=== PATIENT | female | born 1940 | race Caucasian/White ===

== ENCOUNTER 2025-02-21 04:24 | Inpatient (IN) | payer MEDICARE, BC ==
[2025-02-21] MEDS ORDERED: Senokot S 8.6-50 MG TAB PO PRN (05:04)
[2025-02-21] MEDS ORDERED: Ondansetron PF 4 MG/2 ML Vial IVP PRN (05:04)
[2025-02-21] MEDS ORDERED: Calcium Carbonate 500 MG ChewTAB PO PRN (05:04)
[2025-02-21 05:41] LABS: #Basophils Less than 0.03 10x3/uL (0.0-0.2); #Eosinophils Less than 0.03 10x3/uL (0.0-0.7); #Monocytes 0.59 10x3/uL (0.11-0.59); #Neutrophils 14.01 10x3/uL (1.40-6.50); %Basophils 0.1 % (0.0-1.0); %Eosinophils 0.0 % (0.0-10.0); %Lymphocytes 5.3 % (21.0-51.0); %Monocytes 3.8 % (0.0-10.0); %Neutrophils 90.5 % (42.0-75.0); Hematocrit 31.0 % (36.0-47.0); Hemoglobin 9.9 g/dL (12.0-16.0); Mean Corpuscular Hemoglobin 29.6 pg (27.0-31.0); Mean Corpuscular Volume 92.5 fL (78.0-98.0); Platelet Count 129 10x3/uL (130-400); Red Blood Cell (RBC) Count 3.35 mill/uL (4.20-5.40); White Blood Cell (WBC) Count 15.49 10x3/uL (4.8-10.8)
[2025-02-21 05:56] LABS: ALT (SGPT) 13 U/L (Less than 34); AST (SGOT) 28 U/L (11-34); Albumin 3.0 g/dL (3.1-4.5); Alkaline Phosphatase 90 U/L (40-110); Anion Gap 17 mmol/L (10-20); BUN (Urea Nitrogen) 18 mg/dL (9.8-20.1); Bilirubin, Total 0.5 mg/dL (0.3-1.2); Calc. Creatinine Clearance 0 mL/min (70-130); Calcium 9.1 mg/dL (7.8-10.44); Carbon Dioxide 17 mmol/L (23-31); Chloride 106 mmol/L (98-107); Globulin 3.9 g/dL (2.4-3.5); Glucose 129 mg/dL (83-110); Magnesium 1.5 mg/dL (1.6-2.6); Potassium 3.7 mmol/L (3.5-5.1); Sodium 136 mmol/L (136-145)
[2025-02-21 06:25] VITALS: BMI 24.6
[2025-02-21] MEDS: Ketorolac Tromethamine 30 MG (1 mL) VIAL IVP SCH (09:05)
[2025-02-21] MEDS: Enoxaparin 30 MG (0.3 mL) SYRINGE SC SCH (09:06)
[2025-02-21] MEDS: Azithromycin 500 MG in Sodium Chloride 0.9% 250 ML 250 ML IVPB SCH (09:06)
[2025-02-21] MEDS: Magnesium 2 GM/50 ML(in water) 2 GM in Premix 1 BAG IVPB SCH (09:06)
[2025-02-21 16:01] LABS: Bacteria/HPF 1+ HPF (None Seen); Glucose, Urine (Dipstick) Normal (Negative); Leukocyte 500 Leu/uL (Negative); Protein, Urine (Dipstick) 50 mg/dL (Neg-Trace); Specific Gravity, Urine 1.013 (1.002-1.036); WBC/HPF Greater than 50 HPF (0-3)
[2025-02-21] MEDS: Ketorolac Tromethamine 30 MG (1 mL) VIAL IVP PRN (17:28)
[2025-02-21] MEDS: Metoclopramide HCl 10 MG (2 mL) VIAL IVP PRN (17:47)
[2025-02-21] MEDS: Carvedilol 6.25 MG TAB PO SCH (21:22)
[2025-02-22] MEDS: Magnesium 2 GM/50 ML(in water) 2 GM in Premix 1 BAG IVPB SCH (00:38)
[2025-02-22] MEDS: Mometasone 100 MCG HFA INHALER (RT USE) INH SCH (08:03)
[2025-02-22 11:02] LABS: #Basophils Less than 0.03 10x3/uL (0.0-0.2); #Eosinophils Less than 0.03 10x3/uL (0.0-0.7); #Monocytes 0.06 10x3/uL (0.11-0.59); #Neutrophils 5.68 10x3/uL (1.40-6.50); %Basophils 0.0 % (0.0-1.0); %Eosinophils 0.0 % (0.0-10.0); %Lymphocytes 4.6 % (21.0-51.0); %Monocytes 1.0 % (0.0-10.0); %Neutrophils 94.1 % (42.0-75.0); Hematocrit 27.3 % (36.0-47.0); Hemoglobin 8.5 g/dL (12.0-16.0); Mean Corpuscular Hemoglobin 29.9 pg (27.0-31.0); Mean Corpuscular Volume 96.1 fL (78.0-98.0); Platelet Count 111 10x3/uL (130-400); Red Blood Cell (RBC) Count 2.84 mill/uL (4.20-5.40); White Blood Cell (WBC) Count 6.04 10x3/uL (4.8-10.8)
[2025-02-22 11:09] LABS: ALT (SGPT) 22 U/L (Less than 34); AST (SGOT) 42 U/L (11-34); Albumin 2.7 g/dL (3.1-4.5); Alkaline Phosphatase 82 U/L (40-110); Anion Gap 14 mmol/L (10-20); BUN (Urea Nitrogen) 25 mg/dL (9.8-20.1); Bilirubin, Total 0.2 mg/dL (0.3-1.2); Calc. Creatinine Clearance 28 mL/min (70-130); Calcium 8.6 mg/dL (7.8-10.44); Carbon Dioxide 18 mmol/L (23-31); Chloride 113 mmol/L (98-107); Globulin 3.6 g/dL (2.4-3.5); Glucose 153 mg/dL (83-110); Potassium 4.3 mmol/L (3.5-5.1); Sodium 141 mmol/L (136-145)
[2025-02-22] MEDS ORDERED: Rocuronium Bromide 10 MG/ML (10ML VIAL) ONE (11:15)
[2025-02-22] MEDS ORDERED: EPINEPHrine 1 MG/10 ML Abboject SYRINGE ONE (11:15)
[2025-02-22] MEDS ORDERED: Etomidate 40 MG (20 mL) VIAL ONE (11:15)
[2025-02-22 11:29] LABS: Burr Cells SLIGHT = 2-5 cells HPF (0-1); Microcytosis SLIGHT = 6-15 cells HPF (0-5); Platelet Adequacy Comment Platelets Decreased; Polychromasia SLIGHT = 2-3 cells HPF (0-2); Schistocytes SLIGHT = 2-5 cells HPF (0-1)
[2025-02-22 12:17] LABS: Base Excess (BEa) -11.6 mEq/L (-2.0 to +3.0); CO2 Tension 34.9 mmHg (35.0-45.0); Calcium, Ionized (arterial) 1.21 mmol/L (1.12-1.30); Hematocrit-ABG 33 % (36.0-47.0); Hemoglobin (Hb) 11.1 g/dL (12.0-16.0); O2 Tension (PaO2), arterial 65.4 mmHg (> 60.0); Potassium - ABG Lab 3.91 mmol/L (3.70-5.30); pH, Arterial 7.244 (7.35-7.45)
[2025-02-22 12:19] LABS: ALV-art Gradient 176.175 mmHg (0-20); Actual Bicarbonate (HCO3a) 14.8 mEq/L (22-28); Puncture Site Right Radial artery
[2025-02-22] MEDS ORDERED: Electrolyte Replacement Protocol 1 EACH FS PRN (12:21)
[2025-02-22] MEDS ORDERED: Propofol BOLUS 1,000 MG/100 ML VIAL IV PRN (12:45)
[2025-02-22] MEDS ORDERED: Fentanyl BOLUS 100 ML IVPB PRN (12:45)
[2025-02-22] MEDS: Ventilator Sedation Protocol 1 EACH FS ONE (13:35)
[2025-02-22] MEDS: Pantoprazole 40 MG VIAL IVP SCH ×2 (14:23→14:32)
[2025-02-22 14:31] LABS: Troponin I 0.044 ng/mL (< 0.028)
[2025-02-22] MEDS: Furosemide 20 MG (2 mL) VIAL SLOW IVP SCH (17:17)
[2025-02-22] MEDS: Mupirocin 1 GM TUBE NASAL DECOLONIZATION NASAL SCH (20:20)
[2025-02-23 06:12] LABS: #Basophils Less than 0.03 10x3/uL (0.0-0.2); #Eosinophils Less than 0.03 10x3/uL (0.0-0.7); #Monocytes 0.53 10x3/uL (0.11-0.59); #Neutrophils 6.69 10x3/uL (1.40-6.50); %Basophils 0.1 % (0.0-1.0); %Eosinophils 0.1 % (0.0-10.0); %Lymphocytes 14.2 % (21.0-51.0); %Monocytes 6.3 % (0.0-10.0); %Neutrophils 78.9 % (42.0-75.0); Hematocrit 22.8 % (36.0-47.0); Hemoglobin 7.4 g/dL (12.0-16.0); Mean Corpuscular Hemoglobin 29.8 pg (27.0-31.0); Mean Corpuscular Volume 91.9 fL (78.0-98.0); Platelet Count 111 10x3/uL (130-400); Red Blood Cell (RBC) Count 2.48 mill/uL (4.20-5.40); White Blood Cell (WBC) Count 8.47 10x3/uL (4.8-10.8)
[2025-02-23 06:34] LABS: ALT (SGPT) 58 U/L (Less than 34); AST (SGOT) 82 U/L (11-34); Albumin 2.1 g/dL (3.1-4.5); Alkaline Phosphatase 78 U/L (40-110); Anion Gap 13 mmol/L (10-20); BUN (Urea Nitrogen) 38 mg/dL (9.8-20.1); Bilirubin, Total 0.4 mg/dL (0.3-1.2); Calc. Creatinine Clearance 23 mL/min (70-130); Calcium 8.2 mg/dL (7.8-10.44); Carbon Dioxide 16 mmol/L (23-31); Chloride 115 mmol/L (98-107); Globulin 3.3 g/dL (2.4-3.5); Glucose 105 mg/dL (83-110); Magnesium 2.4 mg/dL (1.6-2.6); Potassium 3.4 mmol/L (3.5-5.1); Sodium 141 mmol/L (136-145)
[2025-02-23 07:21] LABS: Base Excess (BEa) -9.6 mEq/L (-2.0 to +3.0); CO2 Tension 26.1 mmHg (35.0-45.0); Calcium, Ionized (arterial) 1.24 mmol/L (1.12-1.30); Hematocrit-ABG 27 % (36.0-47.0); Hemoglobin (Hb) 9.3 g/dL (12.0-16.0); O2 Tension (PaO2), arterial 96.3 mmHg (> 60.0); Potassium - ABG Lab 3.74 mmol/L (3.70-5.30); pH, Arterial 7.364 (7.35-7.45)
[2025-02-23 07:23] LABS: Actual Bicarbonate (HCO3a) 14.5 mEq/L (22-28); Puncture Site Right Radial artery
[2025-02-23 07:24] LABS: ALV-art Gradient 156.275 mmHg (0-20)
[2025-02-23] MEDS: Magnesium 2 GM/50 ML(in water) 2 GM in Premix 1 BAG IVPB SCH (08:32)
[2025-02-23] MEDS: Potassium Chloride 20 MEQ in Premix 1 BAG IVPB SCH (08:33)
[2025-02-23 08:43] LABS: Hematocrit 24.1 % (36.0-47.0); Hemoglobin 7.7 g/dL (12.0-16.0); Mean Corpuscular Hemoglobin 29.5 pg (27.0-31.0); Mean Corpuscular Volume 92.3 fL (78.0-98.0); Platelet Count 132 10x3/uL (130-400); Red Blood Cell (RBC) Count 2.61 mill/uL (4.20-5.40); White Blood Cell (WBC) Count 9.97 10x3/uL (4.8-10.8)
[2025-02-23] MEDS: Sodium Bicarbonate 140 MEQ in Dextrose 5% in Water 1,000 ML IV SCH (10:28)
[2025-02-24] MEDS: Albumin 25% 25 GM (100 mL) BOT IVPB SCH (02:41)
[2025-02-24 02:46] LABS: #Basophils Less than 0.03 10x3/uL (0.0-0.2); #Eosinophils 0.09 10x3/uL (0.0-0.7); #Monocytes 0.71 10x3/uL (0.11-0.59); #Neutrophils 7.09 10x3/uL (1.40-6.50); %Basophils 0.2 % (0.0-1.0); %Eosinophils 0.9 % (0.0-10.0); %Lymphocytes 16.7 % (21.0-51.0); %Monocytes 7.4 % (0.0-10.0); %Neutrophils 74.4 % (42.0-75.0); Hematocrit 27.2 % (36.0-47.0); Hemoglobin 9.1 g/dL (12.0-16.0); Mean Corpuscular Hemoglobin 30.0 pg (27.0-31.0); Mean Corpuscular Volume 89.8 fL (78.0-98.0); Platelet Count 137 10x3/uL (130-400); Red Blood Cell (RBC) Count 3.03 mill/uL (4.20-5.40); White Blood Cell (WBC) Count 9.54 10x3/uL (4.8-10.8)
[2025-02-24 03:19] LABS: ALT (SGPT) 53 U/L (Less than 34); AST (SGOT) 66 U/L (11-34); Albumin 2.2 g/dL (3.1-4.5); Alkaline Phosphatase 82 U/L (40-110); Anion Gap 13 mmol/L (10-20); BUN (Urea Nitrogen) 45 mg/dL (9.8-20.1); Bilirubin, Total 0.6 mg/dL (0.3-1.2); Calc. Creatinine Clearance 22 mL/min (70-130); Calcium 8.3 mg/dL (7.8-10.44); Carbon Dioxide 20 mmol/L (23-31); Chloride 112 mmol/L (98-107); Globulin 3.4 g/dL (2.4-3.5); Glucose 121 mg/dL (83-110); Magnesium 2.6 mg/dL (1.6-2.6); Potassium 3.4 mmol/L (3.5-5.1); Sodium 142 mmol/L (136-145)
[2025-02-24 06:21] LABS: Actual Bicarbonate (HCO3a) 21.4 mEq/L (22-28); Base Excess (BEa) -0.2 mEq/L (-2.0 to +3.0); Calcium, Ionized (arterial) 1.18 mmol/L (1.12-1.30); Hematocrit-ABG 28 % (36.0-47.0); Hemoglobin (Hb) 9.4 g/dL (12.0-16.0); O2 Tension (PaO2), arterial 101.3 mmHg (> 60.0); Potassium - ABG Lab 3.15 mmol/L (3.70-5.30); pH, Arterial 7.552 (7.35-7.45)
[2025-02-24 06:24] LABS: CO2 Tension 24.9 mmHg (35.0-45.0); Puncture Site Right Radial artery
[2025-02-24 06:25] LABS: ALV-art Gradient 152.775 mmHg (0-20)
[2025-02-24] MEDS: Furosemide 40 MG (4 mL) VIAL SLOW IVP SCH (08:14)
[2025-02-24] MEDS: Potassium Chloride 20 MEQ in Premix 1 BAG IVPB SCH (08:15)
[2025-02-24] MEDS: Acetaminophen 325 MG TAB PO PRN (14:59)
[2025-02-24] MEDS: hydrALAZINE 20 MG/ML VIAL SLOW IVP PRN (23:47)
[2025-02-25 01:11] LABS: Troponin I 0.035 ng/mL (< 0.028)
[2025-02-25 04:16] LABS: #Basophils 0.04 10x3/uL (0.0-0.2); #Eosinophils 0.21 10x3/uL (0.0-0.7); #Monocytes 0.60 10x3/uL (0.11-0.59); #Neutrophils 7.01 10x3/uL (1.40-6.50); %Basophils 0.4 % (0.0-1.0); %Eosinophils 2.3 % (0.0-10.0); %Lymphocytes 13.4 % (21.0-51.0); %Monocytes 6.6 % (0.0-10.0); %Neutrophils 76.9 % (42.0-75.0); Hematocrit 26.9 % (36.0-47.0); Hemoglobin 8.6 g/dL (12.0-16.0); Mean Corpuscular Hemoglobin 29.8 pg (27.0-31.0); Mean Corpuscular Volume 93.1 fL (78.0-98.0); Platelet Count 145 10x3/uL (130-400); Red Blood Cell (RBC) Count 2.89 mill/uL (4.20-5.40); White Blood Cell (WBC) Count 9.12 10x3/uL (4.8-10.8)
[2025-02-25 04:40] LABS: Anion Gap 13 mmol/L (10-20); BUN (Urea Nitrogen) 40 mg/dL (9.8-20.1); Calc. Creatinine Clearance 23 mL/min (70-130); Calcium 8.8 mg/dL (7.8-10.44); Carbon Dioxide 23 mmol/L (23-31); Chloride 111 mmol/L (98-107); Glucose 85 mg/dL (83-110); Potassium 3.2 mmol/L (3.5-5.1); Sodium 144 mmol/L (136-145)
[2025-02-25] MEDS: Potassium Chloride 20 MEQ in Premix 1 BAG IVPB SCH (06:29)
[2025-02-25] MEDS: Isosorbide Mononitrate 60 MG ER.TAB PO SCH (08:49)
[2025-02-25] MEDS: Aspirin 81 mg Enteric Coated Tablet PO SCH (09:17)
[2025-02-25] MEDS: Benzonatate 100 MG CAP PO PRN (16:03)
[2025-02-26] MEDS: Albuterol 200 PUFF (6.7GM INHALER) INH PRN (02:11)
[2025-02-26 04:00] LABS: #Basophils 0.03 10x3/uL (0.0-0.2); #Eosinophils 0.20 10x3/uL (0.0-0.7); #Monocytes 0.80 10x3/uL (0.11-0.59); #Neutrophils 8.98 10x3/uL (1.40-6.50); %Basophils 0.3 % (0.0-1.0); %Eosinophils 1.8 % (0.0-10.0); %Lymphocytes 9.9 % (21.0-51.0); %Monocytes 7.2 % (0.0-10.0); %Neutrophils 80.3 % (42.0-75.0); Hematocrit 30.5 % (36.0-47.0); Hemoglobin 9.5 g/dL (12.0-16.0); Mean Corpuscular Hemoglobin 29.4 pg (27.0-31.0); Mean Corpuscular Volume 94.4 fL (78.0-98.0); Platelet Count 149 10x3/uL (130-400); Red Blood Cell (RBC) Count 3.23 mill/uL (4.20-5.40); White Blood Cell (WBC) Count 11.18 10x3/uL (4.8-10.8)
[2025-02-26 04:17] LABS: Anion Gap 17 mmol/L (10-20); BUN (Urea Nitrogen) 36 mg/dL (9.8-20.1); Calc. Creatinine Clearance 27 mL/min (70-130); Calcium 9.3 mg/dL (7.8-10.44); Carbon Dioxide 20 mmol/L (23-31); Chloride 112 mmol/L (98-107); Glucose 96 mg/dL (83-110); Potassium 3.5 mmol/L (3.5-5.1); Sodium 145 mmol/L (136-145)
[2025-02-26] MEDS: Potassium Bicarbonate/Cit Ac 20 MEQ TAB PER TUBE SCH (09:57)
[2025-02-26] MEDS: NIFEdipine XL 60 MG ER.TAB PO SCH (09:57)
[2025-02-26] MEDS: Lisinopril 10 MG TAB PO SCH (09:58)
[2025-02-26] MEDS: Pantoprazole 40 MG DR.TAB PO SCH (09:58)
[2025-02-26] MEDS: ALPRAZolam 0.5 MG TAB PO PRN (19:54)
[2025-02-27] MEDS ORDERED: DISCONTINUE PREVIOUS NARCOTIC PAIN MEDICATIONS AND BENZODIAZEPINES FS SCH (06:15)
[2025-02-27] MEDS ORDERED: Fentanyl BOLUS 100 ML IVPB PRN (06:15)
[2025-02-27] MEDS ORDERED: Ventilator Sedation Protocol 1 EACH FS SCH ×2 (06:15)
[2025-02-27 06:40] LABS: ALT (SGPT) 49 U/L (Less than 34); AST (SGOT) 56 U/L (11-34); Albumin 3.0 g/dL (3.1-4.5); Alkaline Phosphatase 111 U/L (40-110); Anion Gap 15 mmol/L (10-20); BUN (Urea Nitrogen) 39 mg/dL (9.8-20.1); Bilirubin, Total 0.7 mg/dL (0.3-1.2); Calc. Creatinine Clearance 28 mL/min (70-130); Calcium 9.4 mg/dL (7.8-10.44); Carbon Dioxide 23 mmol/L (23-31); Chloride 111 mmol/L (98-107); Globulin 4.0 g/dL (2.4-3.5); Glucose 123 mg/dL (83-110); Magnesium 1.8 mg/dL (1.6-2.6); Potassium 4.3 mmol/L (3.5-5.1); Sodium 145 mmol/L (136-145)
[2025-02-27] MEDS: Propofol BOLUS 1,000 MG/100 ML VIAL IV PRN (07:10)
[2025-02-27 07:31] LABS: Actual Bicarbonate (HCO3a) 21.1 mEq/L (22-28); Base Excess (BEa) -4.4 mEq/L (-2.0 to +3.0); CO2 Tension 40.6 mmHg (35.0-45.0); Calcium, Ionized (arterial) 1.25 mmol/L (1.12-1.30); Hematocrit-ABG 28 % (36.0-47.0); Hemoglobin (Hb) 9.5 g/dL (12.0-16.0); O2 Tension (PaO2), arterial 357.0 mmHg (> 60.0); Potassium - ABG Lab 4.12 mmol/L (3.70-5.30); pH, Arterial 7.334 (7.35-7.45)
[2025-02-27 07:32] LABS: Puncture Site Right Radial artery
[2025-02-27 07:33] LABS: ALV-art Gradient 305.250 mmHg (0-20)
[2025-02-27 07:36] LABS: #Basophils 0.03 10x3/uL (0.0-0.2); #Eosinophils 0.25 10x3/uL (0.0-0.7); #Monocytes 0.65 10x3/uL (0.11-0.59); #Neutrophils 9.10 10x3/uL (1.40-6.50); %Basophils 0.3 % (0.0-1.0); %Eosinophils 2.2 % (0.0-10.0); %Lymphocytes 12.0 % (21.0-51.0); %Monocytes 5.7 % (0.0-10.0); %Neutrophils 79.3 % (42.0-75.0); Hematocrit 30.9 % (36.0-47.0); Hemoglobin 9.6 g/dL (12.0-16.0); Mean Corpuscular Hemoglobin 29.8 pg (27.0-31.0); Mean Corpuscular Volume 96.0 fL (78.0-98.0); Platelet Count 196 10x3/uL (130-400); Red Blood Cell (RBC) Count 3.22 mill/uL (4.20-5.40); White Blood Cell (WBC) Count 11.47 10x3/uL (4.8-10.8)
[2025-02-27] MEDS: Magnesium 2 GM/50 ML(in water) 2 GM in Premix 1 BAG IVPB SCH (09:34)
[2025-02-27] MEDS: Furosemide 20 MG (2 mL) VIAL SLOW IVP SCH (14:50)
[2025-02-27] MEDS: DC Sedation Protocol FS ONE (21:11)
[2025-02-28] MEDS ORDERED: Scopolamine 1 mg/72 hour Patch TD PRN (10:41)
[2025-02-28 11:14] VITALS: BP 198/70; TEMP 97.9
[2025-02-28 14:41] VITALS: BMI 25.4
== END 2025-02-28 15:44 | disposition hospice, inpatient (51) | DRG 871 ==
LOC: T4-A 04:45 → OBS 06:20 → CCU 02-22 11:59 → PCU 02-26 00:25 → CCU 02-27 05:58 → T4-B 02-28 11:05
PROVIDERS: ADMIT Internal Medicine; ATTEND Student in an Organized Health Care Education/Training Program
PROC: 3E03329 Introduction of Other Anti-infective into Peripheral Vein, Percutaneous Approach (ICD-10-PCS; principal; 2025-02-21)
PROC: 30233J1 Transfusion of Nonautologous Serum Albumin into Peripheral Vein, Percutaneous Approach (ICD-10-PCS; 2025-02-21)
PROC: 0BH17EZ Insertion of Endotracheal Airway into Trachea, Via Natural or Artificial Opening (ICD-10-PCS; 2025-02-21)
DX: A41.51 Sepsis due to Escherichia coli [E. coli] (principal); G93.41 Metabolic encephalopathy; I46.9 Cardiac arrest, cause unspecified; J15.9 Unspecified bacterial pneumonia; J96.01 Acute respiratory failure with hypoxia; I50.33 Acute on chronic diastolic (congestive) heart failure; N39.0 Urinary tract infection, site not specified; N17.9 Acute kidney failure, unspecified; E87.20 Acidosis, unspecified; I13.0 Hypertensive heart and chronic kidney disease with heart failure and stage 1 through stage 4 chronic kidney disease, or unspecified chronic kidney disease; Z66 Do not resuscitate; E78.5 Hyperlipidemia, unspecified; F39 Unspecified mood [affective] disorder; J44.9 Chronic obstructive pulmonary disease, unspecified; I25.10 Atherosclerotic heart disease of native coronary artery without angina pectoris; I34.0 Nonrheumatic mitral (valve) insufficiency; I44.7 Left bundle-branch block, unspecified; D63.1 Anemia in chronic kidney disease; E87.6 Hypokalemia; R74.01 Elevation of levels of liver transaminase levels; E87.8 Other disorders of electrolyte and fluid balance, not elsewhere classified; F41.9 Anxiety disorder, unspecified; N18.30 Chronic kidney disease, stage 3 unspecified; D69.6 Thrombocytopenia, unspecified; Z79.899 Other long term (current) drug therapy; Z88.8 Allergy status to other drugs, medicaments and biological substances
CPT/HCPCS: 36415; 36416; 36430; 36600; 71045; 74230; 80048; 80053; 81001; 82805; 83605; 83735; 83880; 84145; 84484; 85025; 86850; 86900; 86901; 87086; 93005; 93010; 93306; 94002; 94003; 94640; J0165; J0360; J0456; J0692; J0780; J1650; J1885; J1940; J2060; J2270; J2470; J2550; J2704; J2765; J2919; J3475; J3480; J7030; J7050; J7070; J7620; P9016; P9047

== ENCOUNTER 2025-02-28 16:06 | Inpatient (IN) | payer OTHER ==
[2025-02-28 16:30] VITALS: BMI 24.0
[2025-02-28] MEDS ORDERED: Bisacodyl 10 MG SUPP PR PRN (16:44)
[2025-02-28] MEDS ORDERED: Hyoscyamine SL 0.125 MG TAB SL PRN (16:45)
[2025-02-28] MEDS ORDERED: diphenhydrAMINE 50 MG/ML VIAL IVP PRN (16:45)
[2025-03-01 08:01] VITALS: BP 199/91; TEMP 98.4
== END 2025-03-01 11:14 | disposition hospice, home (50) | DRG 951 ==
LOC: T4-B 16:06
PROVIDERS: ADMIT Internal Medicine Nephrology; ATTEND Internal Medicine Nephrology
DX: Z51.5 Encounter for palliative care (principal); A41.9 Sepsis, unspecified organism; J18.9 Pneumonia, unspecified organism; N39.0 Urinary tract infection, site not specified; G93.40 Encephalopathy, unspecified; E78.5 Hyperlipidemia, unspecified; F39 Unspecified mood [affective] disorder; I12.9 Hypertensive chronic kidney disease with stage 1 through stage 4 chronic kidney disease, or unspecified chronic kidney disease; N18.9 Chronic kidney disease, unspecified
CPT/HCPCS: J2060; J2270